=== PATIENT | female | born 1955 | race American Indian/Alaskan Native ===

== ENCOUNTER 2016-10-09 06:45 | Day surgery (SDC) | payer MEDICARE ==
[2016-10-01 14:05] VITALS: BMI 36.8
[2016-10-09] MEDS ORDERED: Propofol 10 mg/ml Inj (20 ML) ONE (08:19)
[2016-10-09] MEDS ORDERED: Lactated Ringer's 1,000 ML IV SCH (09:00)
[2016-10-09 11:32] VITALS: PULSE 85; TEMP 98; O2SAT 96
[2016-10-09 11:34] VITALS: BP 145/78; RESP 16
== END 2016-10-09 10:55 | disposition home or self-care (01) ==
LOC: ENDO 06:45
PROVIDERS: ATTEND Specialist
DX: D12.4 Benign neoplasm of descending colon (principal); D12.5 Benign neoplasm of sigmoid colon; K62.1 Rectal polyp; K64.4 Residual hemorrhoidal skin tags; K51.90 Ulcerative colitis, unspecified, without complications; I10 Essential (primary) hypertension; E03.9 Hypothyroidism, unspecified; Z90.12 Acquired absence of left breast and nipple; Z85.3 Personal history of malignant neoplasm of breast
CPT/HCPCS: 45380; 87324; 88305; J2001; J2704; J7040; J7120

== ENCOUNTER 2018-09-02 06:52 | Day surgery (SDC) | payer MEDICARE ==
[2018-08-27 09:46] VITALS: BMI 34.2
[2018-09-02] MEDS ORDERED: Lidocaine 1% Inj (20ml) ONE (08:05)
[2018-09-02] MEDS ORDERED: Propofol 10 mg/ml Inj (20 ML) ONE (08:05)
[2018-09-02] MEDS ORDERED: Sodium Chloride 0.9% 1,000 ML IV SCH (08:30)
[2018-09-02 09:45] VITALS: BP 133/78; PULSE 62; RESP 16; TEMP 98; O2SAT 100
== END 2018-09-02 09:55 | disposition home or self-care (01) ==
LOC: ENDO 06:52
PROVIDERS: ATTEND Specialist
DX: K51.50 Left sided colitis without complications (principal); K62.1 Rectal polyp; I10 Essential (primary) hypertension; E11.9 Type 2 diabetes mellitus without complications; E03.9 Hypothyroidism, unspecified; Z85.3 Personal history of malignant neoplasm of breast
CPT/HCPCS: 45380; 45385; 87045; 87177; 87209; 87324; 88305; J2704; J7030; J7040